=== PATIENT | male | born 1950 | race Caucasian/White ===

== ENCOUNTER → 2016-11-03 | Outpatient (CLI) | payer MEDICARE, BC ==
[~2016-11-03] MED LIST: ACCURETIC 20-121 TAB PO; ACETAMINOPHEN650 M4 PO; AMITRIPTYLINE H25 MG PO; AMITRYPTYLINE PO; ANIMAL SHAPES1 EAC2 PO; BISACODYL5 M1 PO; CARVEDILOL3.125 MG PO; DULCOLAX10 MG/SUPP PR; FERROUS GLUCON324 MG PO; FLEET ENEMA133 M1 PR; FLORASTOR250 M1 PO; LEVAQUIN250 MG PO; LIBRIUM25 M1 PO; LISINOPRIL-HCTZ1 T14 PO; MAGOX 400400 MG PO; MILK OF MAGNESIA PO; MIRALAX17 G2 PO; MULTI-DAY1 TAB PO; OMEPRAZOLE40 MG PO; PEPCID AC20 M2 PO; PLAVIX PO; PRAVASTATIN SOD40 MG PO; PREDNISOLONE5 MG PO; PREVACID PO; QUINAPRIL-HCTZ1 TA1 PO; SYMBICORT INH; TAMSULOSIN HCL0.4 MG PO; TRIAMCINOLONE A15 G3 EXT; TYLENOL PO; VICODIN 5/1 TAB 5/50 PO; ZOCOR PO; [UNRECOGNIZED DRUG - OTHER] PR
--- NOTE | ~2016-11-03 | US13 ---
[facility]. [facility] A Service of [facility] & [facility] / [facility] RADIOLOGY TEXT RESULTS PATIENT: JAIR IRWIN JR LOCATION: [facility] : 46 UNIT #: [id number] AGE: [address]: Jacinto Lambert MD SEX: M ORDER DR: [id number] [address] [address] [id number] O MR#: [id number] Acc #: [id number] NAME: JAIR IRWIN : 1950 SEX: M STUDY DATE/TIME: 11/03/2016 8:06 UNIT: [facility] ROOM: STUDY DESCRIPTION: US Aorta Limited Attending Physician: Jacinto Lambert Jr., M.D. Referring Physician: Jacinto Lambert Jr., M.D. Ordering Physician: Jacinto Lambert Jr., M.D. Primary Care Physician: Jacinto Lambert Jr., M.D. MEDICAL IMAGING REPORT This report is preliminary unless electronic signature is present. EXAM Abdominal aortic duplex, 11/03/2016 HISTORY Known thoracic aneurysm. Smoking history. FINDINGS The proximal aorta measures 2.4 x 2.1 cm, with a velocity of 84 cm/sec. The mid portion of the aorta measures 2.6 x 2.2 cm, distal portion measures 2.1 x 2.2 cm. The right common iliac artery measures 1.4 x 1.8 cm, and the left common iliac artery measures 1.1 x 1.6. IMPRESSION There is no evidence of an infrarenal AAA on today's exam. The aorta measures 2.6 x 2.2 cm at its greatest diameter. Dictated by... Moises Regalado M.D. THIS IS AN ELECTRONICALLY VERIFIED REPORT Moises Regalado M.D. at 11/04/2016 1:12 PM Juan Pablo TD: 11/03/2016 14:18 JOB #: [id number] MEDICAL IMAGING REPORT Page 1 of 1
== END | disposition home or self-care (01) ==
LOC: SGUS 07:53
DX: Z13.6 Encounter for screening for cardiovascular disorders (principal); Z87.891 Personal history of nicotine dependence
CPT/HCPCS: 76775

== ENCOUNTER → 2016-12-29 | Outpatient (CLI) | payer MEDICARE, BC ==
--- NOTE | ~2016-12-29 | CT57 ---
[facility] A Service [facility] RADIOLOGY TEXT RESULTS PATIENT: JARI IRWIN JR LOCATION: [facility] : 46 UNIT #: [id number] AGE: [address]: Carmelo Dover MD SEX: M ORDER DR: [id number] [address] [address] [id number] O MR#: [id number] Acc #: [id number] NAME: JAIR IRWIN : 1950 SEX: M STUDY DATE/TIME: 12/29/2016 8:27 UNIT: [facility] ROOM: STUDY DESCRIPTION: CT Chest Wo Cont Attending Physician: Carmelo Dover M.D. Referring Physician: Carmelo Dover M.D. Ordering Physician: Carmelo Dover M.D. Primary Care Physician: Jacinto Lambert Jr., M.D. MEDICAL IMAGING REPORT This report is preliminary unless electronic signature is present. EXAM CT of the chest without contrast INDICATION Followup lung mass. TECHNIQUE CT chest performed without contrast. Coronal and sagittal reformatted images were obtained. This CT examination was performed with one or more of the following radiation dose reduction techniques: automatic exposure control, adjustment of mA and/or kV according to patient size, and iterative reconstruction. COMPARISON 06/16/2016. FINDINGS Stable lobulated subpleural mass within the left upper lobe. It measures roughly 3.2 x 1.8 cm on sagittal view. Stable scarring in the right upper lobe. Emphysema. Stable bilateral shoulder cysts. No lymphadenopathy or pleural effusion. Limited imaging of the upper abdomen shows bilateral adrenal gland thickening. The bone windows are unremarkable. IMPRESSION Stable lobulated subpleural mass within the left upper lobe. Dictated by... Kanu Melvin M.D. THIS IS AN ELECTRONICALLY VERIFIED REPORT Kanu Melvin M.D. at 01/04/2017 11:20 AM [facility] A Service [facility] RADIOLOGY TEXT RESULTS PATIENT: JAIR IRWIN JR LOCATION: [facility] : 46 UNIT #: [id number] AGE: [address]: Carmelo Dover MD SEX: M ORDER DR: Amari TD: 12/30/2016 12:37 JOB #: [id number] MEDICAL IMAGING REPORT Page 1 of 1
== END | disposition home or self-care (01) ==
LOC: SCT 08:14
DX: R91.8 Other nonspecific abnormal finding of lung field (principal)
CPT/HCPCS: 71250